=== PATIENT | male | born 1945 | race Caucasian/White ===

== ENCOUNTER 2022-03-11 10:45 | Outpatient (CLI) | payer MEDICARE, SELFPAY ==
[2022-03-11 10:54] VITALS: BP 185/78; PULSE 77; RESP 16; O2SAT 97
[2022-03-11] MEDS: TETRACAINE 0.5% OPHTH 1 DROP EYE-LEFT ×3 (10:59→11:41)
[2022-03-11] MEDS: BRIMONIDINE TARTRATE 0.2% OPHTH 1 DROP EYE-LEFT ×2 (11:00→11:49)
--- NOTE | 2022-03-11 12:17 | W.PM.OPTPROC ---
Procedure Note Date of procedure: 03/11/22 Will [facility] bill your pro fee for this procedure?: Yes Procedure Description: SURGEON: Shelia Montanez MD PREOPERATIVE DIAGNOSIS: Posterior capsular opacity, left eye POSTOPERATIVE DIAGNOSIS: Posterior capsular opacity, left eye PROCEDURE: YAG laser capsulotomy, left eye ANESTHESIA: Topical. ESTIMATED BLOOD LOSS: None PATHOLOGY SPECIMEN: None COMPLICATIONS: None INDICATIONS: See consult note for details. The risks, benefits and alternatives of the procedure were explained to the patient, who elected to proceed and signed informed consent to do so. PROCEDURE: The patient was brought to the pre-holding area where the left eye was identified as the operative eye. I placed my initials above this eye. The patient received 2 sets of 1 drop of 0.5% tetracaine and 1 drop of 1% tropicamide. They also received 1 drop of 0.2% brimonidine. They received 1 drop of 0.5% tetracaine immediately prior to bringing them back for the procedure. The patient was then brought to the procedure room where the left eye was again identified as the operative eye. A YAG Jerrell capsulotomy lens was placed on the eye. The laser was administered using a total number of 19 shots with an energy of 2.4 mJ per shot for a total energy of 46 mJ. The patient tolerated the procedure well. DISPOSITION: The patient was taken back to the pre-holding area and given 1 drop of 0.2% brimonidine in the left eye. They were discharged to home in stable condition. The patient was instructed to call me or go to the emergency department with any sudden change, including dramatic loss of vision, severe pain in the eye or eyebrow region, nausea, or vomiting. The patient was instructed to use the 0.2% brimonidine 1 drop 2 times a day in the left eye for 1 week. The patient will follow up in the clinic in 1-2 weeks Surgeon: Shelia Montanez MD
== END 2022-03-11 11:50 | disposition home or self-care (01) ==
PROVIDERS: PCP Family Medicine; Visit Provider Ophthalmology
DX: H26.9 Unspecified cataract (principal)
CPT/HCPCS: 66821; A9270

== ENCOUNTER 2022-10-21 06:03 | Emergency (ER) | payer MEDICARE, SELFPAY ==
[2022-10-21 06:09] VITALS: BP 153/82; PULSE 95; RESP 18; TEMP 36.7; O2SAT 96; BMI 30.1
--- NOTE | 2022-10-21 06:20 | ED_ITS ---
HPI - Male Genitourinary General Time Seen by Provider: 06:21 Date Seen: 10/21/22 Chief complaint: Urogenital Problems, Male Stated complaint: Unable to urinate Time Seen by Provider: 10/21/22 06:20 Source: patient, RN notes reviewed and old records reviewed Mode of arrival: ambulatory Limitations: no limitations History of Present Illness HPI Narrative: Favian is a 77-year-old male coming in with possible urinary obstruction. He was having difficulty urinating all night, unable to go. Just before he was seen, was able to urinate a little bit. He just completed radiation therapy for prostate cancer this past . He has been having some irritative and obstructive urinary symptoms accompanying this. He did have a phone encounter yesterday. He has been on peridium for some of his urinary symptoms as well as Flomax. He denies any fevers. He is still feeling lower abdominal pressure and fullness despite being able to urinate a bit. Related Data Home Medications Medication Instructions Recorded Confirmed aspirin 81 mg capsule 81 mg PO DAILY 09/01/22 09/01/22 clotrimazole 1 % topical cream 1 applic topical Q12H 09/01/22 09/01/22 hydrochlorothiazide 25 mg tablet 25 mg PO DAILY 09/01/22 09/01/22 lisinopril 20 mg tablet 20 mg PO BID 09/01/22 09/01/22 sotalol 80 mg tablet 80 mg PO DAILY 09/01/22 09/01/22 tamsulosin 0.4 mg capsule 0.8 mg PO DAILY 09/01/22 09/01/22 Previous Rx's Medication Instructions Recorded cephalexin 500 mg tablet 500 mg PO TID #20 tabs 10/21/22 Allergies Allergy/AdvReac Type Severity Reaction Status Date / Time No Known Drug Allergies Allergy Verified 09/29/22 15:12 Review of Systems Narrative: As per HPI [facility] Medical History (Updated 10/21/22 @ 06:46 by Anitha Ray RN) Prostate cancer ?C61 - Malignant neoplasm of prostate (ICD-10) SAM (obstructive sleep apnea) ?G47.33 - Obstructive sleep apnea (adult) (pediatric) (ICD-10) 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) A-fib ?I48.91 - Unspecified atrial fibrillation (ICD-10) Surgical History (Updated 10/21/22 @ 06:46 by Anitha Ray RN) History of lumbar laminectomy ?Z98.890 - Other specified postprocedural states (ICD-10) Knee joint replacement status ?Z96.659 - Presence of unspecified artificial knee joint (ICD-10) History of appendectomy ?Z90.49 - Acquired absence of other specified parts of digestive tract (ICD- 10) S/P ablation of atrial fibrillation ?Z98.890 - Other specified postprocedural states (ICD-10) ?Z86.79 - Personal history of other diseases of the circulatory system (ICD- 10) Social History Smoking Status: Never smoker Do you use any of these nicotine containing products: None How often do you have a drink containing alcohol: never AUDIT-C Alcohol total score: 0 Non-prescribed substance use: denies use Exam Const: Vital Signs, click to edit/add: Vital Signs - 24 hr 10/21/22 06:09 Temperature 98.1 F Pulse Rate [Left P ulse Oximeter] 95 Respiratory Rate 18 Blood Pressure [Ri ght Upper Arm] 153/82 H Pulse Oximetry 96 Oxygen Delivery Me thod Room Air Bladder scan done on arrival initial in 528. Patient is ambulatory into the ED of his own accord. He is alert interactive no apparent distress. Abdomen is soft, nondistended. He has lower suprapubic pressure on palpation. No rebound or guarding. Course Course Hospital Course: Discussed with patient recommendations for placement of a Aburto catheter. We discussed that ongoing urinary retention can damage the bladder, potential reflux of urine to the kidneys which can be damaging. My recommendation is placement of a Aburto, will see how much urine drains. It is likely that I am going to recommend this be in for the next days to couple weeks well some of his symptoms settle down after the prostate radiation. We will obtain urinalysis and urine culture. I have ordered a Uro jet for comfort with placement of the Aburto. Reevaluation(s) Time of Reevaluation #1: 07:07 Reevaluation #1: Patient had about 1200 mL of urine out, is feeling much better. He understands will be leaving the Aburto catheter in. He is nitrite positive on his urinalysis, urine culture pending. He does not believe he is on any antibiotic any longer, did see Bactrim on his medication list but he states he is not taking that. He has been using the Pyridium. He can continue with that but may not needed now that he has a Aburto catheter in. Will initiate antibiotics, will give 1st dose here and then send the rest to his pharmacy. Vital Signs Vital signs: Initial Vital Signs Temperature 98.1 F 10/21/22 06:09 Temperature Source Temporal Artery Scan 10/21/22 06:09 Pulse Rate 95 10/21/22 06:09 Respiratory Rate 18 10/21/22 06:09 Blood Pressure 153/82 H 10/21/22 06:09 Blood Pressure Mean 105 10/21/22 06:09 Blood Pressure Position Sitting 10/21/22 06:09 Pulse Oximetry 96 10/21/22 06:09 Oxygen Delivery Method Room Air 10/21/22 06:09 Vital Signs Temperature 98.1 F 10/21/22 06:09 Pulse Rate 95 10/21/22 06:09 Respiratory Rate 18 10/21/22 06:09 Blood Pressure 153/82 H 10/21/22 06:09 Pulse Oximetry 96 10/21/22 06:09 Oxygen Delivery Method Room Air 10/21/22 06:09 Temperature 98.1 F 10/21/22 06:09 Pulse Rate 95 10/21/22 06:09 Respiratory Rate 18 10/21/22 06:09 Blood Pressure 153/82 H 10/21/22 06:09 Pulse Oximetry 96 10/21/22 06:09 Oxygen Delivery Method Room Air 10/21/22 06:09 MDM - Male Genitourinary Lab Data Attestation: I reviewed the patient's lab results. Labs: Lab Results 10/21/22 Range/Units 06:35 Urine Color [place] A (Yellow) Urine Appearance Clear (Clear) Urine pH 5.0 (5.0-8.5) Ur Specific [place] <= 1.005 (1.000-1.030) Urine Protein Negative (Negative) Urine Glucose (UA) Trace A (Negative) Urine Ketones Negative (Negative) Urine Blood Negative (Negative) Urine Nitrite Positive A (Negative) Urine Bilirubin Negative (Negative) Urine Urobilinogen 1.0 (0.2-1.0) Ur Leukocyte Esterase Negative (Negative) Urine RBC 0-2 (0-2) Urine WBC 0-2 (0-5) Ur Squamous Epith Cells Few (None-Few) Urine Bacteria Few A (None) Discharge Plan Discharge Clinical Impression: Aburto catheter status, Acute urinary retention Patient Disposition: Home, Self-Care Condition: Stable Instructions: Urinary Retention in Men (ED), Aburto Catheter Placement and Care (ED) Additional Instructions: Need to see Urology for further advised but on when catheter can be removed. Review handouts for catheter care. We will certainly contact you if the urine culture should grow anything that would require change in antibiotics. Urine is likely infected, continue with antibiotics as prescribed. Activity Level: Activity as Tolerated Prescriptions: New cephalexin 500 mg tablet 500 mg PO TID Qty: 20 0RF No Action clotrimazole 1 % cream 1 applic topical Q12H sotalol 80 mg tablet 80 mg PO DAILY lisinopril 20 mg tablet 20 mg PO BID tamsulosin 0.4 mg capsule 0.8 mg PO DAILY hydrochlorothiazide 25 mg tablet 25 mg PO DAILY aspirin 81 mg capsule 81 mg PO DAILY Follow Up/Referrals: Yoni Nolasco MD [Primary Care Provider] - Stand Alone Forms: [employer] Info Instructions
[2022-10-21 06:46] LABS: Appearance Urine Clear (Clear); Bilirubin Urine Negative (Negative); Blood Urine Negative (Negative); Color Urine Orange (Yellow); Glucose Urine Trace (Negative); Ketones Urine Negative (Negative); Leukocyte Esterase Urine Negative (Negative); Nitrite Urine Positive (Negative); Protein Urine Negative (Negative); Specific Gravity Urine <= 1.005 (1.000-1.030)
[2022-10-21] MEDS: lidocaine HCL 2 % JELLY (TOP) STERILE 6 ML UR (06:48)
--- NOTE | 2022-10-21 06:56 | ED.NURSE ---
catheter insertion without complication, initial catheter output 1200cc orange tinted urine.
[2022-10-21 06:57] LABS: Bacteria Urine Few; RBC Urine 0-2 (0-2); Squamous Epithelial Cell Urine Few (None-Few); WBC Urine 0-2 (0-5)
[2022-10-21] MEDS: cephALEXin 500 MG CAPSULE PO (07:36)
--- NOTE | 2022-10-21 07:38 | ED.NURSE ---
education gone over with patient twice. pt demonstrated emptying and cath cares, pt denies any further questions on discharge.
== END 2022-10-21 07:39 | disposition home or self-care (01) ==
LOC: ED 07:21
PROVIDERS: Emergency Provider Family Medicine; PCP Family Medicine
DX: R33.9 Retention of urine, unspecified (principal)
CPT/HCPCS: 51702; 51798; 81001; 87086; 99283; A9270

== ENCOUNTER 2022-12-23 10:30 | Outpatient (RCR) | payer MEDICARE, SELFPAY ==
--- NOTE | 2022-06-26 12:12 | URNOTE ---
Request received for authorization for?Degarelix (Firmagon) ([id number]). Prior authorization is approved from 07/01/2022 to 07/02/2023 per [facility] insurance via [employer]. Alaina Blanc Ref#[id number].
[2022-07-07 13:37] VITALS: BP 154/90; PULSE 71; RESP 16; TEMP 37.1; O2SAT 96
--- NOTE | 2022-07-21 18:18 | A.ONCPRONO_ITS ---
[facility] Provider Note Clinic Note Narrative: Treatment plan: degarelix Mr. Brown follows with [facility] for medical management of prostate cancer. He received loading dose of degarelix on 07/07/[address] Arnaud Maguire written order. Received order from Argentina Amaya APRN, CNP for next dose of degarelix 80mg SubQ for 08/04/22. I have entered this dose into a treatment plan on her behalf for Mr. Brown.
[2022-08-04 10:27] VITALS: BP 162/62; PULSE 78; RESP 16; TEMP 36.7; O2SAT 98
[2022-08-04] MEDS: DEGARELIX ACETATE 80 MG INJ SUBCUT (10:46)
--- NOTE | 2022-08-04 11:17 | ONC.NURNOTE ---
sterile 2x2 and 4x4s with paper take sent home with pt for daily dressing changes of 2 small areas on his flank. see note from 08/03. instructions on daily dressing change and call if fever,chills, reddness around site or increase pussy drainage. strongly encouraged him to finish his 5 days of antibiotics and call if no improvement, questions or worsen of wound.
--- NOTE | 2022-08-12 11:43 | ONC.NURNOTE ---
Diagnosis: Primary Malignant Neoplasm of Prostate.
[2022-09-01 14:40] VITALS: BP 172/91; PULSE 72; RESP 16; TEMP 36.3; O2SAT 96
[2022-09-01] MEDS: DEGARELIX ACETATE 80 MG INJ SUBCUT (15:18)
[2022-09-29 15:12] VITALS: BP 159/94; PULSE 65; RESP 16; TEMP 36.4; O2SAT 96
[2022-09-29] MEDS: DEGARELIX ACETATE 80 MG INJ SUBCUT (15:24)
[2022-10-28 10:15] VITALS: BP 159/82; PULSE 71; RESP 16; TEMP 36.1; O2SAT 96
[2022-10-28] MEDS: DEGARELIX ACETATE 80 MG INJ SUBCUT (10:28)
[2022-11-25 09:58] VITALS: BP 148/60; PULSE 63; RESP 16; TEMP 35.9; O2SAT 99
[2022-11-25] MEDS: DEGARELIX ACETATE 80 MG INJ SUBCUT (10:15)
[2022-12-23 13:30] VITALS: BP 138/73; PULSE 85; RESP 16; TEMP 36.1; O2SAT 97
[2022-12-23] MEDS: DEGARELIX ACETATE 80 MG INJ SUBCUT (13:44)
== END 2023-01-03 23:59 | disposition home or self-care (01) ==
LOC: CCIC 10:30
PROVIDERS: PCP Family Medicine; Referring Provider Family Medicine; Visit Provider Internal Medicine
DX: C61 Malignant neoplasm of prostate (principal)
CPT/HCPCS: 96372; 96401; J9155

== ENCOUNTER 2023-06-15 13:30 | Outpatient (RCR) | payer MEDICARE, SELFPAY ==
[2023-01-22] MEDS: DEGARELIX ACETATE 80 MG INJ SUBCUT (14:29)
[2023-02-23 14:28] VITALS: BP 132/75; PULSE 75; RESP 16; TEMP 36.4; O2SAT 97
[2023-02-23] MEDS: DEGARELIX ACETATE 80 MG INJ SUBCUT (14:57)
[2023-03-23 13:55] VITALS: BP 136/79; PULSE 72; RESP 16; TEMP 36.7; O2SAT 97
[2023-03-23] MEDS: DEGARELIX ACETATE 80 MG INJ SUBCUT (14:11)
--- NOTE | 2023-03-23 14:26 | ONC.NURNOTE ---
Addendum entered by Cindy Stahl RN 03/25/23 13:46: Patient called back and notes that there is a lump and slightly sore. No swelling noted. Addendum entered by Cindy Stahl RN 03/25/23 12:14: LMOM for patient to call office back to give us an update. Original Note: Patient here for degaralix injection. He notes that with his last injection that the area swelled up for a few days and was slightly painful. The time before that it was only for a couple of days. Abdominal area is soft with no bruising present. He states that previous injections were given low in the abdomen, so ticket writer gave in the upper quadrant to see if this would alleviate. Nursing to call and check on patient on of this week, and he is aware to call [facility] with update if no call is made to him.
[2023-04-20 15:04] VITALS: BP 122/71; PULSE 64; RESP 18; TEMP 36.8; O2SAT 98
[2023-04-20 15:12] LABS: Est. Creatinine Clearance* 57.84; Estimated Glomerular Filt Rate 78 ml/min
[2023-04-20] MEDS: DEGARELIX ACETATE 80 MG INJ SUBCUT (15:24)
[2023-04-20 15:44] LABS: PSA Diagnostic* < 0.06 ng/mL (0.10-4.00)
[2023-05-18 13:31] VITALS: BP 148/68; PULSE 65; RESP 16; TEMP 35.8; O2SAT 99
[2023-05-18 13:44] VITALS: BP 148/68; PULSE 65; RESP 16; TEMP 35.8; O2SAT 99
[2023-05-18] MEDS: DEGARELIX ACETATE 80 MG INJ SUBCUT (14:02)
[2023-06-15 13:29] VITALS: BP 147/74; PULSE 72; RESP 16; TEMP 35.9; O2SAT 96
--- NOTE | 2023-06-15 14:21 | PC.NURSE ---
Pt present at [facility] for last Firmagon injection. Favian reports that he has occasional skipping beats that resolve on their own, usually with getting up to move. Pt has cardiology follow-up in 3 weeks so called that MD with this update. They ordered an EKG and a 1 week monitor. Both have been done. RN called and spoke with Argentina Amaya NP who reviewed his chart and stated OK to give last Firmagon injection today. This was done. Pt tolerated well. Support offered.
== END 2023-07-21 23:59 | disposition home or self-care (01) ==
LOC: CCIC 13:30
PROVIDERS: PCP Family Medicine; Referring Provider Family Medicine; Visit Provider Internal Medicine
DX: C61 Malignant neoplasm of prostate (principal)
CPT/HCPCS: 36415; 82565; 84153; 96401; J9155

== ENCOUNTER 2024-03-07 08:27 | Day surgery (SDC) | payer MEDICARE, SELFPAY ==
[2024-03-07] VITALS (13 sets, daily range): BP systolic 102–145; BP diastolic 49–83; PULSE 55–66; RESP 18–20; TEMP 36.1–36.8; O2SAT 92–99
--- OUTSIDE RECORDS SUMMARY | 2024-03-07 08:32 | XMS_ITS | Referral Summary ---
Author Organization [facility] Address [address] [place] [address] Care Team Providers Care Hot Strip Mill Supervisor Name Role Phone Unavailable Primary Care Provider Unavailabl e Source Comments Patient records contain information from all sites at [facility]. For routine questions regarding patient records, call [phone] during business hours, M-F 8:00 AM - 5:00 PM Central Time. Record requests for emergency care only can be directed to [phone] at any time.[facility] Allergies No known active allergies Medications hydroCHLOROthi azide (HYDRODIURIL) 25 mg tablet Take 25 mg by mouth daily. 2 Active lisinopriL (PRINIVIL,ZEST RIL) 20 mg tablet Take 20 mg by mouth 2 (two) times a day. [address] tablet Take 81 mg by mouth. 2 Active tamsulosin (FLOMAX) 0.4 mg 24 hr capsule Take 0.8 mg by mouth daily. 2 Active LORazepam (Ativan) 0.5 mg tablet Take 1 tablet (0.5 mg) 1 hour prior to MRI scan. Take additional tablet (0.5 mg) 30 minutes later if needed for anxiety. 2 tablet 3 Active DME Urological suppliesIndica tions:Retentio n Urinary,Primar y Malignant Neoplasm Of Prostate (HCC) DME Order 1 Unspecified 4 Active acetaminophen (TYLENOL) 325 mg tablet Take 650 mg by mouth every 4 (four) hours as needed for pain. 6 Active dilTIAZem CD (CARDIZEM CD/CARTIA XT) 180 mg 24 hr capsule Take 1 capsule by mouth daily. 4 Active sotaloL (BETAPACE) 80 mg tablet Take 40 mg by mouth every 12 (twelve) hours. 4 Active MAGNESIUM CITRATE, BULK, MISC Take 250 mg by mouth daily. Active CALCIUM CITRATE MALATE-VIT D3 ORAL Take 2 tablets by mouth daily. 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/26/2022 Primary Malignant Neoplasm Of Prostate 3 Cancer Staging:Clinical stage from 05/13/2022:Stage IIIB(cT3a, cN0, cM0, PSA: 4.6, Grade Group: 3) - Unsigned Elevated Prostate-Specific Antigen 05/02/2019 Social History Tobacco Use Types Packs/Day Years Used Date Smoking Tobacco: Former Cigarettes 1 7 2006 Smokeless Tobacco: Current Chew Tobacco Cessation:Ready to Q uit: Not Asked; Counseling Given: Not Answered Alcohol Use Standard Drinks/Week Comments Not Currently 0 (1 standard drink = 0.6 oz pur e alcohol) Nutrition Answer Date Recorded Nutrition: EVOO Fat Source 13 10/06 Nutrition: Servings of Fruits/Vegetables per Day Not on file 10/06/2018 Dental Answer Date Recorded Dental: Regular Dentist Unknown 06/10/19 23 Sex and Gender Information Value Date Recorded Sex Assigned at Not on file 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 Gender Identity Not on file Sexual Orientation Not on file Last Filed Vital Signs Vital Sign Reading Time Taken Comments Blood Pressure 141/62 10/14/2023 8:57 AM CDT Pulse 67 10/14/2023 8:57 AM CDT Temperature 36.4 ??C (97.6 ??F) 10/14/2023 8:57 AM CD T Respiratory Rate - - Oxygen Saturation - - Inhaled Oxygen Concentration - - Weight 91.8 kg (202 lb 6.1 oz) 10/14/2023 8:57 A M CDT Height - - Body Mass Index - - Plan of Treatment Upcoming Encounters Date Type Department Care Team (Late st Contact Info) Description 04/14/2024 9:20 AM MANAGER PULMONARY Appointment Department of Laboratory Medicine in [address] [phone] Argentina Amaya APRN, C.N.P., D.N.P. [address] [place] [address] Medical Devices Implanted Type Area Quality Assurance Advisor Device Identifier Shelf Expiration Date Model / Serial / Lot Knee Implant Knee Implant Bilateral : Knee Ocular Lens Ocular Lens Bilateral : Eye Procedures Procedure Name Priority Date/Time Associated Diagnosis Comments CREATININE WITH EGFR, S/P Routine 08/02/2023 9:25 AM CDT Retention Urinary Chronic from Last 3 Months or Most Recently Relevant to Health Maintenance Results * Creatinine with Estimated GFR (08/02/2023 9:25 AM CDT) Creatinine 1.02 0.74 - 1.35 mg/dL 08/02/2023 9:44 AM CDT [facility] Estimated GFR (eGFR) 75 >=60 mL/min/BSA 08/02/2023 9:44 AM CDT [facility] Comment: Estimated GFR calculated using the 2020 CKD_EPI creatinine equation. Blood (Blood, Venous) 08/02/2023 9:25 AM CDT 08/02/2023 9:26 AM CDT us Juliet ONEAL, P.A.-C. LAB BLOOD ADD-ON F inal Result [facility] [address] [place] [address], [facility] [address] [place] [address] from Last 3 Months or Most Recently Relevant to Health Maintenance Insurance [facility]
--- OUTSIDE RECORDS SUMMARY | 2024-03-07 08:32 | XMS_ITS ---
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 Past Plans Hem/Onc Therapy Plan 1 Plan Name Start Date Discontinue Date Treatment Medications Discontinue Reason Plan Provider DEGARELIX 06/25/2022 06/21/2023 No medications scheduled. Therapy Complete Argentina Amaya APRN, C.N.P., D.N.P. Radiation Treatments * Plan Last Treated On Elapsed Days Fractions Treated Prescribed Fraction Dose Prescribed Total Dose [id number] 10/15/2022 28 20 of 20 320 cGy 6,400 cGy Reference Point Last Treated On Elapsed Days Session Dose Total Dose [id number] 10/15/2022 28 320 cGy 6,400 cGy
--- OUTSIDE RECORDS SUMMARY | 2024-03-07 08:32 | XMS_ITS | Clinical Summary ---
Author Organization [facility] Address [address] [place] [address] Care Team Providers Care Executive Producer Promos Name Role Phone Unavailable Primary Care Provider Unavailabl e Source Comments Patient records contain information from all sites at [facility]. For routine questions regarding patient records, call [phone] during business hours, M-F 8:00 AM - 5:00 PM Central Time. 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 [address] [place] [phone] Health Maintenance Due Date Last Done Comments Hepatitis C Screening 1945 Tobacco Cessation counseling 1945 DTaP,Tdap,and Td Vaccines (2 - Td or Tdap) 03/08/2019 03/08/2009 RSV vaccine - (32-36 weeks) or 60+ years (1 - 1-dose 75+ series) 2020 Depression Screening (Annual PHQ-2) 04/26/2023 Fall Risk Screen (Annual) 04/26/2023 COVID-19 Vaccine (2023- season) 2023 02/24/2023, 02/23/2022, 01/21/2021, Additional history exists Potassium Level 01/02/2024 01/01/2023, 11/25, 12/06/2020, Additional history exists Sodium Level 01/02/2024 01/01/2023, 11/25, 12/06/2020, Additional history exists Influenza Vaccine (#1) 2024 , 02/23/2022, 03/03/2021, Additional history exists Creatinine Level (Kidney Function Test) 08/01/2024 08/02/2023, 01/01/2023, 10/28/2022, Additional history exists Pneumococcal vaccine (65+ years) Completed 05/16/2015, 01/27/2013, 05/04/1997 Colonoscopy Discontinued 04/25/2019 Colorectal Cancer Screening Discontinued Zoster Vaccines Completed 05/17/2019, 01/25, 02/12/2014 CT Colonography Discontinued Cologuard Discontinued FIT Discontinued HPV Vaccines Aged Out No longer eligi ble based on patient's age to complete this topic IPV Vaccines Aged Out No longer eligi ble based on patient's age to complete this topic Medical Devices Implanted Type Area Doctor Of Veterinary Medicine Device Identifier Shelf Expiration Date Model / [...] P.A.-C. LAB BLOOD ADD-ON F inal Result [email or web address] [address] [place] [address], [facility] [place] [address] [place] [phone] from Last 3 Months or Most Recently Relevant to Health Maintenance Insurance [facility] [place] [address]
--- OUTSIDE RECORDS SUMMARY | 2024-03-07 08:32 | XMS_ITS | Clinical Summary ---
Author Organization [facility] Address [place], [place] [address] Care Team Providers Care Email Designer Name Role Phone Yoni Nolasco MD Primary Care Provider [phone]- [phone] Allergies No known active allergies Medications Medication Sig Dispensed Refills Start Date End Date Status acetaminophen (TYLENOL) 325 mg tablet Take 2 tablets by mouth every 4 hours if needed. Max acetaminophen dose: 4000mg in 24 hrs. 0 11/07/2015 Active aspirin (ECOTRIN) 81 mg enteric coated tabletIndications: Atypical atrial flutter (HC),Paroxysmal atrial fibrillation (HC) Take 1 Tablet (81 mg) by mouth once daily with a meal. 0 12/24/2021 Active dilTIAZem CD (Cardizem CD) 180 mg extended release 24 hr capsuleIndications :Paroxysmal atrial fibrillation (HC),Palpitations Take 1 Capsule (180 mg) by mouth once daily. 90 Capsule 3 07/05/2023 Active sotaloL (BETAPACE) 80 mg tabletIndications: Paroxysmal atrial fibrillation (HC) Take 0.5 Tablets (40 mg) by mouth every 12 hours. 90 Tablet 3 07/05/2023 Active CPAPIndications:OS A (obstructive sleep apnea) Replacement CPAP machine for home use at pressure: 12 cmw, choice of mask; Length of Need: 99 months; Frequency of use: Daily 1 Each 7 06/23/2023 Active calcium citrate/vitamin D3 (CALCIUM CITRATE + D ORAL) Take by mouth. Unsure of dose Active magnesium citrate 100 mg tab Take 400 mg by mouth. Active lisinopriL (PRINIVIL; ZESTRIL) 20 mg tabletIndications: Essential hypertension Take 1 Tablet (20 mg) by mouth two times daily. 200 Tablet 3 01/11/2024 Active hydroCHLOROthiazid e 25 mg tabletIndications: Essential hypertension Take 1 Tablet (25 mg) by mouth once daily in the morning. 100 Tablet 3 01/11/2024 Active hydrOXYzine pamoate (VISTARIL) 25 mg capsuleIndications :Anxiety Take 1-2 Capsules (25-50 mg) by mouth 3 times daily if needed for Anxiety. 40 Capsule 3 01/11/2024 Active tamsulosin (FLOMAX) 0.4 mg capsuleIndications :Lower urinary tract symptoms (LUTS) TAKE 2 CAPSULES BY MOUTH DAILY AFTER A MEAL 200 Capsule 3 01/11/2024 Active Active Problems Problem Noted Date Diagnosed Date Anxiety 01/11/2024 Prostate cancer 01/01/2023 Overview (01/01/2023): Followed at [facility]. Dr. Maguire is his Radiation Oncologist Nida Damico APRN, BOARDER MACHINE, DNP is his Urology provider. Dr. 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 Hernia of unspecified site o f abdominal cavity without mention of obstruction or gangrene Hypercholesterolemia SAM (obstructive sleep apnea) History of right knee joint replacement Overview (01/01/2023): Later left knee replacement Resolved Problems Problem Noted Date Diagnosed Date Resolved Date Palpitations 10/26/2018 Encounters Date Type Department Care Team Description 03/06/2024 Orders Only [facility] [address] [place] [address] Wendy Guevara MD <No scans attached> 03/03/2024 12:40 PM MARKETING AUTOMATION ANALYST Office Visit [facility] [address] [place] [address] Yoni Nolasco MD Preoperative Exam (Melanoma on the back, DOS: 1112, Dr. Guevara, [facility], ) 03/03/2024 Travel 03/01/2024 9:45 AM MARKETING AUTOMATION ANALYST Office Visit [address] [place] [address] Wendy Guevara MD Consult (Needs wide excision melanoma upper back referred by Dr. Nolasco) 03/01/2024 Travel 02/28/2024 1:00 PM MARKETING AUTOMATION ANALYST Nurse/Clinic Staff Only [address] [address] Suture Removal (Back sutures/) 02/28/2024 Travel 02/23/[address] [place] [address] Yoni Nolasco MD Abnormal Lab Results 02/18/2024 9:40 AM CDT Office Visit [address] [address] Yoni Nolasco MD Procedure (Punch biopsy-back) 02/18/2024 Travel 01/28/2024 Telephone [facility] [place] [place] [address] [facility] [address] [place] [address] Storm Robles MD Results (Zio Monitor) 01/11/2024 10:25 AM CDT Office Visit [address] [address] Yoni Nolasco MD Medicare ANNUAL (subsequent) Visit (78 year old medicare); Derm Problem (Red Spot on face not going away few months); Immunization/Injecti on 01/11/2024 Travel 01/09/[address] [address] Yoni Nolasco MD Refill Request (Tamsulosin) 01/06/2024 8:00 AM CDT Orders Only [facility] [address] [address] Lab, [place] [facility] 01/06/2024 Travel from Last 3 Months Immunizations Name Administration Dates Next Due COVID-19 VACCINE SPIKEVAX (M ODERNA 50MCG/0.5ML) 12YO+ PFS 01/11/2024,02/24/2023 COVID-19 vaccine (Pfizer-Bio NTech 30mcg/0.3mL) PF, MDV 07/10/2020,06/19/2020 Influenza A (H1N1), Inactivated 05/08/2009 Influenza, High-dose Inactivated 019,03/02/2018,02/05/2016,03/12,02/12/2014 Influenza, High-dose Quadriv alent Inactivated 02/23/2022,03/03/2021,02/19/2020 Influenza, IIV3 (Age >=3 years) 02/01/20 13,01/26/2012,01/27/2011,03/08 Influenza, Inactivated AIIV4 (Age 65+ Years) Preserv Free 02/24/2023 Influenza, Inactivated IIV3 (Age 65+ Years) Preserv Free 01/11/2024,03/02/2018 Influenza, Injectable, Mdck, Quadrivalent, W/preservative 02/23/2017 Pneumococcal Poly,23-Valent (Pneumovax) 01/27/2013,05/04/1997 Pneumococcal conj 13-Valent (Prevnar 13) 05/16/2015 RSV, Recombinant ADJ Reconst ituted (Arexvy 120MCG/0.5mL) 01/26/2024 Td (Age >=7 Years) 07/17/1998 Tdap 01/26/2024,03/08/2009 Zoster (Shingrix-RZV, recombinant) 05/17/2019, Zoster (Zostavax-ZVL, live) 02/12/2014 Family History Medical History Relation Name Comments Asthma Brother Molina Skin cancer Brother Molina Heart Disease Father CHF of th is at 82 Diabetes Maternal Aunt several Diabetes Maternal Uncle several Cancer-colon Mother of this at 80 Diabetes Mother Hypertension Mother Relation Name Status Comments Brother Molina Alive Father Maternal Aunt Maternal Uncle Mother Social History Tobacco Use Types Packs/Day Years Used Date Smoking Tobacco: Former Cigarettes 0 04/26/1976 - 04/26/2006 Smokeless Tobacco: Current Chew Tobacco Cessation:Ready to Q uit: No; Counseling Given: Yes Comments:1 can /5 days Alcohol Use Standard Drinks/Week Comments No 0 (1 standard drink = 0.6 oz pur e alcohol) none since September 2015 PHQ-2 Answer Date Recorded PHQ-2 TOTAL SCORE 0 01/11/2024 Social Connections Answer Date Recorded Do you often feel lonely or isolated from those around you? 0 01/11/2024 Financial Resource Strain Answer Date R ecorded Difficulty of Paying Living Expenses 3 01/11/2024 Difficulty of Paying Living Expenses Not on file 01/11/2024 Food Insecurity Answer Date Recorded Do you worry your food will run out before you are able to buy more? 1 01/11/2024 Transportation Needs Answer Date Record ed Does lack of transportation keep you from medica l appointments? 1 01/11/2024 Does lack of transportation keep you from work, meetings or getting things that you need? 1 01/11/2024 Housing Stability Answer Date Recorded What is your housing situation today? 1 01/11/2024 Sex and Gender Information Value Date Recorded Sex Assigned at Not on file Gender Identity Not on file Sexual Orientation Not on file Obstetrics History Last Filed Vital Signs Vital Sign Reading Time Taken Comments Blood Pressure 138/72 03/03/2024 1:00 PM MARKETING AUTOMATION ANALYST Pulse 68 03/03/2024 12:37 PM MARKETING AUTOMATION ANALYST Temperature 36.8 ??C (98.3 ??F) 01/01/2023 1 0:09 AM CDT Respiratory Rate 16 11/06/2017 10:1 0 AM CDT Oxygen Saturation 96% 03/03/2024 12: 37 PM MARKETING AUTOMATION ANALYST Inhaled Oxygen Concentration - - Weight 90.4 kg (199 lb 3.2 oz) 03/03/20 12:37 PM MARKETING AUTOMATION ANALYST With shoes Height 173 cm (5' 8.11) 03/03/2024 12: 37 PM MARKETING AUTOMATION ANALYST Body Mass Index 30.19 03/03/2024 12:37 PM MARKETING AUTOMATION ANALYST Plan of Treatment Upcoming Encounters Date Type Department Care Team (Late st Contact Info) Description 03/07/2024 9:30 AM MARKETING AUTOMATION ANALYST Office Visit [facility] at [facility] [address] [place] [address] Wendy Guevara MD [address] [place] [address] Health Maintenance Due Date Last Done Comments COVID-19 vaccine series ( season) 2024 01/11/2024, 02/24/2023, 02/23/2022, Additional history exists Depression screening for age 12+ 01/10/2025 01/11/2024, 02/25/2023, 02/24/2023, Additional history exists Medicare Wellness for age 65+ 01/11/2025, 01/01/2023, 12/24/2021, Additional history exists BMI (ht and wt on same day) for age 18+ 03/03/2025 03/03/2024, 01/11/2024, 07/05/2023, Additional history exists Tetanus booster 01/25/2034 01/26/2024, 02/24, 07/17/1998 Pneumococcal series for age 65+ Completed 05/16/2015, 01/27/2013, 05/04/1997 Zoster (shingles) series for age 50+ Completed 05/17/2019, 02/15/2019, 02/12/2014 Hepatitis C screening for ag e 18-79 Completed 12/06/2019 Influenza for age 65+ Completed 01/11/2024 , 02/24/2023, 02/23/2022, Additional history exists RSV vaccine for adults or Completed 01/26/2024 Tdap Completed 01/26/2024, 03/08/2009 Medical Devices Implanted Type Area Velvet Cutter Device Identifier Shelf Expiration Date Model / Serial / Lot Sleeve Silcn 1.00i.D.X2.1mm Od Sty70 [id number] [employer] - [id number] Implanted:Qty: 1 on 11/06/2017 by Aamir Jacobs MD at [facility] Left: Eye [employer] 05/26/2024 [id number]# / / [id number] Strip Silcn 0.75x3.5x125 [id number] - [id number] Implanted:Qty: 1 on 11/06/2017 by Aamir Jacobs MD at [facility] Left: Eye [employer] 05/26/2024 [id number]# / / [id number] Procedures Procedure Name Priority Date/Time Associated Diagnosis Comments PATH TISSUE EXAM Routine 02/18/2024 10:2 7 AM CDT Skin lesion of back HEMOGLOBIN A1C Routine 01/06/2024 7:58 AM CDT Impaired fasting glucose LIPID PANEL W REFLEX MEASURED LDL Routine 01/06/2024 7:58 AM CDT Hypercholesterolemia BASIC METABOLIC PANEL Routine 01/06/2024 7:58 AM CDT Essential hypertension EXTENDED HOLTER Routine 12/20/2023 12:00 AM CDT Paroxysmal atrial fibrillation (HC) ANTI HCV Add On 12/06/2019 8:45 AM CDT Need for hepatitis C screening test from Last 3 Months or Most Recently Relevant to Health Maintenance Results * PATH TISSUE EXAM (02/18/2024 10:27 AM CDT) Case Report Pathology Report ?Case: [id number] ? Authorizing Provider: ??Yoni Nolasco MD ?Collected: ? 02/18/2024 1027 ? Ordering Location: ? [facility] ?? Received: ?02/18/2024 1118 ? Clinic ? Pathologist: ? Gwendolyn Vazquez MD ? Specimen: ?Skin Lesion ? 02/23/2024 12:51 PM CDT [facility] Final Diagnosis SKIN, UPPER BACK, BIOPSY: 1. Malignant melanoma ?? a. Maximum depth of invasion: 0.8 mm ?? b. Ulceration: Not identified ?? c. Margins: Peripheral: Positive (for in situ component); Deep: Negative 2. See comment and staging parameters below 02/23/2024 12:51 PM CDT [facility] Comment Re-excision to obtain 1.0 cm negative margins and consideration of sentinel lymph node biopsy are recommended. Dr. Vazquez has left a message with this result to for Yoni Miranda on Wednesday02/23/2024. Case seen in consultation with Dr. Giovanni Melgar. 02/23/2024 12:51 PM CDT [facility] Clinical Information Skin lesion of back. 02/23/2024 12:51 PM CDT [facility] Gross Description A) Received in formalin, labeled with the patient's name and upper back, is a 1.0 x 0.7 x 0.5 cm skin punch biopsy. The skin surface is remarkable for a 0.5 x 0.5 x 0.1 cm flat hanna-brown lesion that is abutting the nearest peripheral edge. ??The specimen is inked blue, trisected and entirely submitted in one cassette. TLF 02/18/2024 ? 02/23/2024 12:51 PM T [facility] Microscopic Description The final diagnosis is based on microscopic examination of appropriate sections of all specimens. The presence of blue ink is confirmed on tissue sections. Melan-A immunostain was performed and highlights in situ and invasive melanoma components. 02/23/2024 12:51 PM T [facility] SYNOPTIC REPORTING MELANOMA OF THE SKIN: Excision, Re-Excision MELANOMA OF THE SKIN: EXCISION, RE-EXCISION ??- All Specimens 8th Edition - Protocol posted: 03/05/2021 SPECIMEN ?? Procedure: ?Punch biopsy ?? Specimen Laterality: ?Not specified TUMOR ?? Tumor Site: ?Skin of trunk: Upper back. ?? Histologic Type: ?Superficial spreading melanoma (low-cumulative sun damage (CSD) melanoma) ?? Maximum Tumor (Breslow) Thickness (Millimeters): ?0.8 mm ?? Macroscopic Satellite Nodule(s): ?Not identified ?? Ulceration: ?Not identified ?? Anatomic (Mane) Level: ?IV (Melanoma invades reticular dermis) ?? Mitotic Rate: ?None identified ?? Microsatellite(s) : ?Not identified ?? Lymphovascular Invasion: ?Not identified ?? Neurotropism: ?Not identified ?? Tumor-Infiltratin g Lymphocytes: ?Present, brisk ?? Tumor Regression: ?Present, involving less than 75% of lesion ?? MARGINS: ? Margin Status for Invasive Melanoma: ?All margins negative for invasive melanoma ? Margin Status for Melanoma in situ: ?Melanoma in situ present at margin ? Margin(s) Involved by Melanoma in Situ: ?Peripheral ?? REGIONAL LYMPH NODES: ? Regional Lymph Node Status: ?Not applicable (no regional lymph nodes submitted or found) ?? PATHOLOGIC STAGE CLASSIFICATION (pTNM, AJCC 8th Edition): ? pT Category: ?pT1b ? pN Category: ?pN not assigned (no nodes submitted or found) 02/23/2024 12:51 PM CDT [facility] Plated [facility] Additional Information Interpreted at [facility] Roomer Travel [facility] - [address] [place] [address] Immunohistochemis try controls were reviewed and approved by the pathologist during this examination. 02/23/2024 12:51 PM CDT [facility] Other (Skin Lesion) Non-Blood / Unknown 02/18/2024 10:27 AM CDT 02/18/2024 11:18 AM CDT Yoni Nolasco MD PATHOLOGY/CYTOLOGY Performing Organization Address City/State/[facility] Co de Phone Number [facility] [address] [place] [address], * HEMOGLOBIN A1C SCREENING (01/06/2024 7:58 AM CDT) HEMOGLOBIN A1C SCREENING 5.9 <=6.4 % 01/06/2024 1:30 PM CDT [facility] Plated [facility] Blood BLOOD SPECIMEN / Unknown Venipuncture / Unknown 01/06/2024 7:58 AM CDT 01/06/2024 7:58 AM CDT Narrative [facility] - 01/06/2024 1:30 PM CDT ? (<5.7%) ?Normal ? (5.7% to 6.4%) ? Indicates prediabetes ? (>=6.5%) ? Confirms diabetes Falsely low levels may be seen with: Recent Transfusion, Recent Significant Blood Loss, Hemolytic Diseases, or Falsely elevated levels may be seen with: Untreated Anemias, Splenectomy Yoni Nolasco MD CHEMISTRY [facility] [address] [place] [address], * (ABNORMAL) LIPID PANEL W REFLEX MEASURED LDL (01/06/2024 7:58 AM CDT) CHOLESTEROL,TOTAL 193 100 - 199 mg/dL 01/06/2024 2:23 PM CDT [facility] Comment: Cholesterol, Total Reference Ranges Desirable <200 mg/dL Borderline 200-239 mg/dL High >=240 mg/dL TRIGLYCERIDES 120 <150 mg/dL 01/06/2024 2:23 PM CDT [facility] HDL CHOLESTEROL 41 >40 mg/dL 2:23 PM CDT [facility] NON-HDL CHOLESTEROL 152(H) <145 mg/dl 01/06/2024 2:23 PM CDT [facility] CHOL/HDL RATIO 4.71(H) <4.50 01/06/2024 2:23 PM CDT [facility] LDL CHOLESTEROL 128 <=130 mg/dL 01/06/2024 2:23 PM CDT [facility] VLDL CHOLESTEROL 24 <=30 mg/dL 01/06/2024 2:23 PM CDT [facility] PROVIDER ORDERED STATUS RANDOM 01/06/2024 2:23 PM CDT [facility] Blood BLOOD SPECIMEN / Unknown Venipuncture / Unknown 01/06/2024 7:58 AM CDT 01/06/2024 7:58 AM CDT Yoni Nolasco MD CHEMISTRY [facility] [address] [place] [address], [place] * (ABNORMAL) BASIC METABOLIC PANEL (01/06/2024 7:58 AM CDT) SODIUM 140 136 - 145 mmol/L 01/06/2024 2:23 PM CDT [facility] POTASSIUM 4.4 3.5 - 5.1 mmol/L 01/06/2024 2:23 PM T [facility] CHLORIDE 103 98 - 107 mmol/L 01/06/2024 2:23 PM T [facility] CO2,TOTAL 27 22 - 29 mmol/L 01/06/2024 2:23 PM T [facility] ANION GAP 10 5 - 18 01/06/2024 2:23 PM T [facility] GLUCOSE 113(H) 70 - 99 mg/dL 01/06/2024 2:23 PM T [facility] CALCIUM 9.5 8.8 - 10.2 mg/dL 01/06/2024 2:23 PM T [facility] BUN 20 8 - 23 mg/dL 01/06/2024 2:23 PM T [facility] CREATININE 1.08 0.70 - 1.20 mg/dL 01/06/2024 2:23 PM T [facility] BUN/CREAT RATIO 19 10 - 20 2:23 PM T [facility] eGFR 70(L) >90 mL/min/1.7 3m2 01/06/2024 2:23 PM T [facility] Comment:As of 2021, eG FR is calculated by the CKD-EPI creatinine equation without race adjustment. ??eGFR can be influenced by muscle mass, exercise, and diet. ??The reported eGFR is an estimation only and is only applicable if the renal function is stable. Blood BLOOD SPECIMEN / Unknown Venipuncture / Unknown 01/06/2024 7:58 AM CDT 01/06/2024 7:58 AM CDT Yoni Nolasco MD CHEMISTRY [facility] [address] [place], [place] [address] * ZIO PATCH XT - weekly to monthly symptoms. Specifiy duration 3 days, 1 week, or 2 weeks (2:00 AM CDT) Storm Robles MD CARDIAC SERVICES ORD * ANTI HCV (12/06/2019 8:45 AM CDT) HEPATITIS C ANTIBODY Non-React gianfranco Non-React gianfranco 12/07/2019 12:04 PM CDT [facility] Comment:Antibodies to HCV no t detected; does not exclude the possibility of exposure to HCV. Blood BLOOD SPECIMEN / Unknown Venipuncture / Unknown 12/06/2019 8:45 AM CDT 12/06/2019 8:45 AM CDT Shelton Mahoney MD SEND OUTS [facility] [address] [place] [address], from Last 3 Months or Most Recently Relevant to Health Maintenance Advance Directives * Full Code (Latest Code Status on File) Date Activated Date Inactivated Comments 11/06/2017 7:26 AM 11/06/2017 12:27 PM * Full Code Date Activated Date Inactivated Comments 10/06/2016 5:56 AM 10/07/2016 12:50 PM * Full Code Date Activated Date Inactivated Comments 06/02/2016 12:17 PM 06/02/2016 5:18 PM * Full Code Date Activated Date Inactivated Comments 04/01/2016 7:00 AM 04/01/2016 10:20 AM * Full Code Date Activated Date Inactivated Comments 10/24/2015 11:53 AM 10/24/2015 6:11 PM Care Teams Email Designer Relationship Specialty Start Date End Date Yoni [place]olasco [place] [address] PCP - General Family Practice 12/24/21
--- OUTSIDE RECORDS SUMMARY | 2024-03-07 08:32 | XMS_ITS | Data Portability ---
Author Organization [place] [facility], [facility] Address [address] [place] [address] Assessment Encounter Date Assessment Date Assessment LastModified by Organization Details LastModified Time 05/13/2022 05/13/2022 See me in 6 months with a PSA IF THE BIOPSY IS NEGATIVE. [email or web address] Not available 05/13/2022 11:12:09 06/09/2022 06/09/2022 Favian is a 76-year-old man with PSA 4.5, cT2b, grade group 3 prostate cancer. We discussed the natural history of prostate cancer and in particular, unfavorable intermediate risk disease. A PSMA scan shows no evidence for metastatic disease. We spent much time discussing surgery and radiation. We discussed the different forms of radiation including some of the risks and benefits. We discussed the risks and benefits of robotic prostatectomy. At this time, Favian is leaning towards radiation therapy. We discussed the possible role for ADT, fiducials and SpaceOAR. I will refer him for a radiation oncology consultation in [place]. Total time spent on the day of the visit in chart preparation, [id number] counseling and documentation is 45 minutes. [email or web address] Not available 06/09/2022 20:54:05 Plan of Treatment Reminders Order Date Submit Date Provider Last Modified By Organization Details Last Modified Time Details Appointments None recorded. Lab biopsy, prostate [address] [facility], [address], [place], [address], 13:46:30 Referral radiation oncologist referral - Please evaluate for treatment this 76-year-old man with clinical T2b, PSA 4.5, unfavorable intermediat e risk prostate cancer with a PSMA scan that is negative for metastasis. 2022 023 Arnaud Maguire MD, [address] [place], [address], 3 12:05:49 Procedures None recorded. Surgeries None recorded. Imaging None recorded. Medication Orders ceftriaxone 1 gram solution for injection 2022 023 [email or web address] Not available 3 09:54:24 Patient TargetsNo targets recorded. Patient InstructionsNo instructions recorded. Reason for Referral Please evaluate for treatmen t this 76-year-old man with clinical T2b, PSA 4.5, unfavorable intermediate risk prostate cancer with a PSMA scan that is negative for metastasis. Referring Physician: Juan Rosenbaum, Urology, Encounter Date: 06/09/2022 Results Created Date Observation Date Name Description Value Unit Range Abnormal Flag Note LastModifiedBy Organization Detail LastModifiedTime 05/18/19 23 05/13/2022 US, prost ate No observ ation record ed. [email or web address] Not Available 11:06:23 06/09/19 23 06/09/2022 PET/C T eyes/ thigh s prost ate pylar ramna No observ ation record ed. [facility] [place] [address] [place] [address], [id number], 06/10/2022 06:31:11 Result Notes None recorded. Problems Name Problem SNOMED Code Status Onset Date Resolution Date Notes Provider Name and Address Organization Details Recorded Time Prostate specific antigen above reference range 419121443 Active 2022 Meenakshi sands [facility] 3 10:21:36 Atrial fibrillation 19050554 Active 2022 Meenakshi sands [facility] 3 10:21:49 Problem Notes None recorded. Procedures Surgical History Date Name Laterality Status Provider Name and Address Organization Details Recorded Time 3 Prostate Biopsy Procedure cancelled Meenakshi Rushing [facility] 04/13/2022 12:21:14 3 URONAV cancelled Meenakshi Rushing [facility] 04/13/2022 12:21:14 3 Prostate Biopsy Procedure completed Juan Rosenbaum MD [address], [place], [address], [place] [facility] 05/13/2022 11:12:00 3 URONAV completed Meenakshi Rushing [facility] 05/11/2022 13:39:15 3 Rocephin/Ceftri axone completed Mona Fregoso [facility] 05/13/2022 09:52:42 0 Colonoscopy completed Meenakshi Rushing [facility] 05/13/2022 10:19:44 Imaging Results Imaging Date Name Status LastModified by Organiz ation Details LastModified Time 05/13/2022 US, prostate completed Informati on not available 05/18/2022 11:06:23 06/09/2022 PET/CT eyes/thighs prostate pylarify completed [facility] [address], [place], [address], 06/10/2022 06:31:11 Procedure Notes None recorded. Medical Equipment None Reported. Allergies No known drug allergies Medications Name Sig Start Date Stop Date Status Note LastModified by Organization Details LastModified Time amoxicillin 500 mg capsule TAKE 4 CAPSULES 1 HR PRIOR TO DENTAL APPOINTMENT active Not Available Not Available Not Available sulfamethoxa zole 800 mg-trimethop rim 160 mg tablet TAKE 1 TABLET BY MOUTH TWICE A DAY active Not Available Not Available No t Available ceftriaxone 1 gram solution for injection Take 1 g by injection route. 2022 active Not Available Not Available Not Avai lable tamsulosin 0.4 mg capsule active Not Available Not Available Not Available clotrimazole 1 % topical cream PLEASE SEE ATTACHED FOR DETAILED DIRECTIONS active Not Available Not Available N ot Available Vitals None Recorded Social History Question Answer Notes LastModified by Organizat ion Details LastModified Time Tobacco Smoking Status Former Smoker Meenakshi sands, [facility] 05/13/2022 10:20:23 What Is Your Level Of Alcohol Consumption? None Information not available 05/13/2022 What Is Your Level Of Caffeine Consumption? None Information not available 05/13/2022 Do You Or Have You Ever Used E-cigarettes Or Vape? Never Used Electronic Cigarettes Information not available 05/13/2022 When Did You Quit Smoking? 16+yearssincel alva Information not available 05/13/2022 What Was The Date Of Your Most Recent Tobacco Screening? 05/13/2022 Information not available 05/13/2022 Do You Or Have You Ever Used Smokeless Tobacco? Current Snuff User Information not available 05/13/2022 Do You Use Any Illicit Or Recreational Drugs? No Information not available 05/13/2022 Has Tobacco Cessation Counseling Been Provided? Yes Information not available 05/13/2022 On What Date Was Tobacco Cessation Counseling Provided? 05/13/2022 Information not available 05/13/2022 Do You Or Have You Ever Used Any Other Forms Of Tobacco Or Nicotine? Yes Information not available 05/13/2022 Sex: Unknown Functional Status None recorded. Mental Status None recorded. Family History Nothing Reported. Medical History Condition Response Diabetes N Sexually Transmitted Infection N Other N Bleeding Disorder N High Blood Pressure N Kidney Stones N High Cholesterol N GERD/Acid Reflux N Heart Disease N Cancer N Lung Disease N Depression Y Immunizations Vaccine Type Date Status Provider Name and Address Organization Details Recorded Time zoster recombinant 02/15/2019 melvin sands [facility] 05/13/2022 10:18:05 zoster live 02/12/2014 melvin sands [facility] 05/13/2022 10:18:05 COVID-19, mRNA, LNP-S, PF, 30 mcg/0.3 mL dose 01/21/2021 melvin sands [facility] 05/13/2022 10:18:05 pneumococcal polysaccharide PPV23 01/27/2013 melvin sands [facility] 05/13/2022 10:18:05 Influenza, split virus, trivalent, preservative 03/08/2007 melvin sands [facility] 05/13/2022 10:18:05 Influenza, high-dose, trivalent, PF 02/15/2019 completed Meenakshi Rushing null, [facility] 05/13/2022 10:18:06 zoster recombinant 05/17/2019 completed Meenakshi cook null, [facility] 05/13/2022 10:18:06 Influenza, high-dose, quadrivalent, PF 02/23/2022 completed Meenakshi Rushing null, [facility] 05/13/2022 10:18:06 Influenza, split virus, trivalent, preservative 01/26/2012 completed Meenakshi Rushing null, [facility] 05/13/2022 10:18:06 Influenza, split virus, trivalent, preservative 01/31/2013 completed Meenakshi Rushing null, [facility] 05/13/2022 10:18:06 Influenza, high-dose, trivalent, PF 02/12/2014 completed Meenakshi Rushing null, [facility] 05/13/2022 10:18:06 Influenza, high-dose, trivalent, PF 03/12/2015 completed Meenakshi Rushing null, [facility] 05/13/2022 10:18:06 Influenza, high-dose, quadrivalent, PF 02/19/2020 completed Meenakshi sands, [facility] 05/13/2022 10:18:06 COVID-19, mRNA, LNP-S, PF, 30 mcg/0.3 mL dose 06/19/2020 completed Meenakshi Rushing null, [facility] 05/13/2022 10:18:06 Influenza, high-dose, trivalent, PF 03/02/2018 completed Meenakshi Rushing null, [facility] 05/13/2022 10:18:06 Tdap 03/08/2009 completed Meenakshi Rushing null, [facility] 05/13/2022 10:18:06 Influenza, high-dose, trivalent, PF 02/05/2016 completed Meenakshi Rushing null, [facility] 05/13/2022 10:18:06 Pneumococcal conjugate PCV 13 05/16/2015 completed Meenakshi Rushing null, [facility] 05/13/2022 10:18:06 COVID-19, mRNA, LNP-S, bivalent, PF, 30 mcg/0.3 mL dose 02/23/2022 completed Meenakshi sands, [facility] 05/13/2022 10:18:06 Influenza, split virus, trivalent, preservative 01/27/2011 completed Meenakshi sands, [facility] 05/13/2022 10:18:06 Influenza, high-dose, quadrivalent, PF 03/03/2021 completed Meenakshi sands, [facility] 05/13/2022 10:18:06 COVID-19, mRNA, LNP-S, PF, 30 mcg/0.3 mL dose 07/10/2020 completed Meenakshi sands, [facility] 05/13/2022 10:18:06 Influenza, MDCK, quadrivalent, preservative 02/23/2017 completed Meenakshi sands, [facility] 05/13/2022 10:18:06 Novel [id number], all formulations 05/08/2009 completed Meenakshi sands, [facility] 05/13/2022 10:18:06 Past Encounters Encounter ID Performer Location Encounter Start Date Encounter Closed Date Diagnosis/Indication Diagnosis SNOMED-CT Code Diagnosis ICD10 Code [id number] MD Jonathan Hodges[facility] [employer] [address] [place] [phone] 05/13/2022 09:49:34 05/13/2022 11:17:02 Prostate specific antigen above reference range 145032706 R97.20 [id number] Mona Escobarehsan [facility] [employer] [address] [place] [phone] 05/13/2022 09:48:23 05/13/2022 09:56:52 Prostate specific antigen above reference range 112841823 R97.20 [id number] MD Patti HodgesRhapsoo [employer] [address] [place] [address] [phone] 06/09/2022 14:46:01 06/10/2022 08:35:03 Malignant tumor of prostate 468771499 C61 Health Concerns Section Related Observation LastModified by Organization Detai ls LastModified Time None Recorded Concern Status LastModified by Organization Details LastModified Time None Recorded Advance Directives Directive None Recorded Payers Encounter Date Sequence Insurance Name Policy Number Policy Altamirano Covered Member ID Altamirano Member ID Guarantor Name 05/13/2022 1 [facility] (MEDICARE REPLACEMENT/A DVANTAGE - PPO) [id number] Cody Brown [id number] Cody Brown 05/13/2022 1 [facility] (MEDICARE REPLACEMENT/A DVANTAGE - PPO) [id number] Cody Brown [id number] Cody Brown 06/09/2022 1 [facility] (MEDICARE REPLACEMENT/A DVANTAGE - PPO) [id number] Cody Brown [id number] Cody Brown Notes Date Note Type Note Provider Name and Address Organization Details Recorded Time 06/09/2022 text/html HPI Notes: Chief complaint is prostate cancer Bill returns accompanied by his Melinda to discuss his recently diagnosed prostate cancer. This was diagnosed after PSA was found to be elevated at 4.56. An MRI showed a PI-RADS 5 lesion. Biopsy shows grade group 3 disease with cancer identified in the target lesion as well as 9 of the 12 biopsy zones of the prostate. He has recovered well from the biopsy. He has no erectile function. He has no voiding complaints at this time. Prostate volume is 54 mL. Juan Rosenbaum MD [address], [place], [address], [facility] 06/09/2022 20:59:24
--- OUTSIDE RECORDS SUMMARY | 2024-03-07 08:32 | XMS_ITS ---
Author Organization [facility] Address [address] [place] [address] Care Team Providers Care Lokie Driver Name Role Phone Unavailable Unavailable Unavailable Surgery Details Not on file Complications Check Surgery Details section. Procedure Estimated Blood Loss Check Surgery Details section. Procedure Findings Check Surgery Details section. Procedure Specimens Taken Check Surgery Details section.
--- NOTE | 2024-03-07 09:14 | SUR.PREOP ---
Nuclear medicine here to do injection.
--- NOTE | 2024-03-07 09:25 | SUR.PREOP ---
Pt to radiology for sentinel node imaging.
--- NOTE | 2024-03-07 09:27 | W.PM.H&PU ---
History & Physical Update History & Physical Update H&P Reviewed and patient assessed: No changes noted
[2024-03-07] MEDS: SODIUM CHLORIDE 0.9 % (FLUSH) 10 ML SYRINGE IVF (09:45)
--- NOTE | 2024-03-07 10:00 | CRLHL7_ITS ---
For Patients: As a result of the Century Cures Act, medical imaging exams and procedure reports are released immediately into your electronic medical record. You may view this report before your referring provider. If you have questions, please contact your health care provider. INDICATION: UPPER MID BACK MELANOMA TECHNIQUE: [place] lymph node study performed after the injection 0.53 mCi [id number]-Rmlhjiqp Sulfur Colloid Upper Mid Back Intradermal. Bilateral axillary sentinel lymph nodes identified and marked. FINDINGS: The procedure and its risks were explained in detail to the patient including but not limited to the risk of bleeding, infection, and a nondiagnostic procedure. The patient understood the procedure and its risks and elected to proceed. [place] protocol was followed and the Time Out procedure was performed. Then, using sterile technique and local anesthesia, an intradermal injection of 0.53 millicuries of Tc99m filtered sulfur colloid was made in the upper mid back. No complications. Bilateral axillary sentinel lymph nodes identified and marked. Discussed with Dr. Guevara. Dictated by Aamir Johnson MD @ 03/07/2024 10:38:00 AM (Electronically Signed)
[2024-03-07] MEDS: 0.9 % SODIUM CHLORIDE 500 ML 500 ML 100 ML IV (10:10)
[2024-03-07] MEDS: ISOSULFAN BLUE 5 ML VIAL INJECTION (10:55)
[2024-03-07] MEDS: CEFAZOLIN 2 GM INJ IVP (10:59)
[2024-03-07] MEDS: LIDOCAINE 1%-EPI 1:100,000 20 ML INFILTRATI (11:14)
[2024-03-07] MEDS: BUPIVACAINE 0.25% 30 ML INJECTION (11:14)
--- NOTE | 2024-03-07 11:21 | W.ANESCHARGE ---
Anesthesia Charges Start Date/Time Anesthesia Start Date: 03/07/24 Anesthesia Start Time: 10:41 Stop Date/Time Anesthesia Stop Date: 03/07/24 Anesthesia Stop Time: 13:27 Summary Extremes of Age - Over 70 or under 1: MDA
[2024-03-07] MEDS: LACTATED RINGERS 500 ML 500 ML 100 ML IV (12:00)
--- NOTE | 2024-03-07 13:37 | P.GSOP_ITS ---
Operative Note Date of procedure: 03/07/24 Pre-op diagnosis: Malignant melanoma, left upper back Post-op diagnosis: Same Type of Procedure: 1. Wide local excision malignant melanoma, left upper back 2. Left axillary sentinel lymph node biopsy 3. Right axillary sentinel lymph node biopsy Indications: Patient is a 78-year-old male who presented to clinic with recent biopsy of a suspicious lesion consistent with malignant melanoma. Please see consultation note regarding full discussion of treatment options. Patient with a Breslow depth of 0.8 mm and recommendations for 1 cm margins. Risks and benefits of sentinel node biopsy were also discussed at length with the patient. Risks included but was not limited to: Bleeding, infection, risk of damage to surrounding structures, possible need for additional procedures, risk of wound dehiscence, risk of seroma or hematoma, risk of nerve injury or lymphadenopathy and postoperative complications such as pneumonia, pulmonary emboli or NC. All questions and concerns were addressed with the patient agreeing to proceed. Procedure Description: Prior to presenting to the operating room patient had injection of radionucleotide tracer. Lymphoscintigraphy was performed with imaging reviewed with Radiology. Evidence of light up to bilateral axilla. After obtaining informed consent, the patient was brought to the operating room where anesthesia intubated the patient. They were placed in a lateral position, with all pressure points padded. The upper back was prepped and draped in standard sterile fashion. A timeout was taken for patient safety. ? I injected 2 cc of lymphazurin blue into the biopsy site scar for lymph node ma pping. ? I identified the patient's biopsy site and measured 1 cm circumferential margins. I then made an vertical elliptical incision longer than wide. I sharply incised the skin and dissected the subcutaneous tissue down to but not including the underlying fascia. The specimen was circumferentially completely resected in this plane. It was marked with a short stitch at superior, a long stitch lateral and sent for permanent evaluation. Bupivacaine was infused for analgesia. ? I then undermined approximately 2 cm circumferentially and closed the wound in intermediate fashion using interrupted 2-0 Vicryl deep stitches, 3-0 Vicryl stitches in the subcutaneous tissue and a running 4-0 monocryl for the skin. Steri strips and a sterile dressing were applied. ? The patient was then repositioned, reprepped and redraped. Using the Neoprobe, I for started at the left axilla and identified an area of maximal counts. This was consistent with preoperative lymphoscintigraphy imaging which suggested drainage to both axilla. I made a skin incision, dissected the subcutaneous tissue. There was an immediately identifiable radioactive non-blue node. This was circumferentially dissected and removed. Ex vivo counts were 1384. I rescanned the left axilla and found no additional area of high counts. Hemostasis was assured with electrocautery. The clavipectoral fascia was closed with a mifujy-pq-opthi stitch of 3-0 Vicryl. The incision was then closed in layers with interrupted 3 0 Vicryl and running 4-0 Monocryl. Dermabond was placed over top. Attention was then directed to the right axilla and an area identified of maximal counts. A made a skin incision, dissected the subcutaneous tissue. There was an immediately identifiable radioactive non blue node. This was circumferentially dissected and removed. Ex vivo counts were with 1-3. I re- scanned the right axilla and found no additional area of high counts. Hemostasis was assured with electrocautery. The clavipectoral fascia was closed with a yxkcxn-jr-swogb stitch of 3-0 Vicryl. The incision was then closed in layers with interrupted 3 0 Vicryl and running 4-0 Monocryl. Dermabond was placed over top. ? The patient was awakened from anesthesia and taken to the PACU in stable condition. Findings: Wide local excision, upper left back melanoma. [place] lymph node biopsy bilateral axilla. Anesthesia: GETA Surgeon: Wendy Guevara MD Estimated blood loss (mL): 10 Additional Specimen Information: 1. Wide local excision left upper back melanoma 2. Left axillary sentinel lymph node 3. Right axillary sentinel lymph node Condition: stable Disposition: PACU Primary Cutaneous Melanoma Operation Performed with Curative Intent: Yes Original Breslow thickness of the lesion: Depth in mm 0.8 Clinical margin width (measured from the edge of the lesion or the prior excision scar): 1 cm Depth of Excision: Full thickness skin/subcutaneous tissue down to fascia (melanoma)
--- NOTE | 2024-03-07 13:41 | W.ANESCHARGE ---
Anesthesia Charges Start Date/Time Anesthesia Start Date: 03/07/24 Anesthesia Start Time: 10:41 Stop Date/Time Anesthesia Stop Date: 03/07/24 Anesthesia Stop Time: 13:27
== END 2024-03-07 14:59 | disposition home or self-care (01) ==
PROVIDERS: PCP Family Medicine; Visit Provider Surgery
PROC: (CPT 11606; principal; 2024-03-07 10:45)
PROC: (CPT 11606; 2024-03-07 10:45)
DX: C43.59 Malignant melanoma of other part of trunk (principal)
CPT/HCPCS: 11606; 12031; 38500; 00300; 78195; 88305; 88307; 88342; 99100; A9541; J0330; J0665; J0690; J1100; J2371; J2405; J2704; J3010; J7030; J7120